=== PATIENT | male | born 1955 | race American Indian/Alaskan Native ===

== ENCOUNTER 2020-12-04 15:06 | Emergency (ER) | payer MEDICARE, OTHER ==
[2020-12-04 16:33] VITALS: BP 141/62
--- NOTE | 2020-12-04 16:36 | Event Note ---
ED Screening Note Date of service: 12/04/20 Time: 16:35 ED Screening Note: Patient complains of right flank pain x10 days States history of kidney stones and that this pain feels similar Denies hematuria or dysuria, but admits to urinary frequency This initial assessment/diagnostic orders/clinical plan/treatment(s) is/are subject to change based on patients health status, clinical progression and re- assessment by fellow clinical providers in the ED. Further treatment and workup at subsequent clinical providers discretion. Patient/guardian urged not to elope from the ED as their condition may be serious if not clinically assessed and managed. Initial orders include: Labs CT noncontrast
--- NOTE | 2020-12-04 17:18 | Cat Scan Report ---
CT ABDOMEN PELVIS WITHOUT CONTRAST INDICATION / CLINICAL INFORMATION: R flank pain, hx of kidney stones. TECHNIQUE: Axial CT images were obtained through the abdomen and pelvis without IV contrast. All CT scans at [facility] location are performed using CT dose reduction for ALARA by means of automated exposure control. COMPARISON: None available. FINDINGS: LOWER CHEST: No significant abnormality. LIVER: No significant abnormality. GALLBLADDER: No significant abnormality. BILE DUCTS: No significant abnormality. PANCREAS: No significant abnormality. SPLEEN: No significant abnormality. ADRENALS: No significant abnormality. RIGHT KIDNEY and URETER: 0.66 cm calcification right kidney lower pole LEFT KIDNEY and URETER: No significant abnormality. STOMACH and SMALL BOWEL: No significant abnormality. COLON: No significant abnormality. APPENDIX: No significant abnormality. PERITONEUM: No free fluid. No free air. No fluid collection. LYMPH NODES: No significant adenopathy. AORTA and ARTERIES: Atherosclerotic calcified plaque abdominal aorta and iliac arteries with aneurysm s of the common iliac arteries, measuring 1.6 cm on the right 1.96 cm on the left IVC and VEINS: No significant abnormality. URINARY BLADDER: No significant abnormality. REPRODUCTIVE ORGANS: Dystrophic calcifications present within a enlarged prostate ADDITIONAL FINDINGS: None. SKELETAL SYSTEM: No significant abnormality. IMPRESSION: 1. Right nephrolithiasis 2. Bilateral common iliac artery aneurysms Signer Name: Sawyer John MD Signed: 12/04/2020 5:14 PM Workstation Name: [id number]
[2020-12-04 17:23] LABS: Basophils % (Auto) 0.6 % (0.0-1.8); Eosinophils # (Auto) 0.3 K/mm3 (0.0-0.4); Eosinophils % (Auto) 3.6 % (0.0-4.3); Hematocrit 38.1 % (35.5-45.6); Hemoglobin 12.5 gm/dl (11.8-15.2); Lymphocytes # (Auto) 1.9 K/mm3 (1.2-5.4); Lymphocytes % (Auto) 27.5 % (13.4-35.0); Mean Corpuscular HGB Conc 33 % (32-34); Mean Corpuscular Volume 87 fl (84-94); Monocytes # (Auto) 0.6 K/mm3 (0.0-0.8); Platelet Count 257 K/mm3 (140-440); Red Blood Count 4.37 M/mm3 (3.65-5.03); Red Cell Distribution Width 14.6 % (13.2-15.2)
[2020-12-04 17:44] LABS: Alanine Aminotransferase 27 units/L (7-56); Albumin 4.3 g/dL (3.9-5); BUN/Creatinine Ratio 14; Blood Urea Nitrogen 14 mg/dL (9-20); Hemolysis Index 16
[2020-12-04 19:26] LABS: Bilirubin,Urine NEG (Negative); Blood,Urine SM (Negative); Color,Urine Amber (Yellow); Mucus,Urine FEW /HPF; Protein,Urine <15 mg/dL mg/dL (Negative)
[2020-12-04] MEDS ORDERED: SODIUM CHLORIDE 0.9% 1000 ML 1,000 ML IV ONE (19:34)
[2020-12-04] MEDS ORDERED: KETOROLAC 30 MG/1 ML INJ IV ONE (19:34)
[2020-12-04] MEDS ORDERED: ONDANSETRON 4 MG/2 ML INJ IV ONE (19:34)
--- NOTE | 2020-12-04 19:40 | Emergency Department Report ---
ED Abdominal Pain HPI - General Chief Complaint: Abdominal Pain Stated Complaint: BACK PAIN POSS KIDNEY STONE PUI?: No Time Seen by Provider: 12/04/20 16:35 Source: patient Mode of arrival: Ambulatory Limitations: No Limitations - History of Present Illness Initial Comments: 64 yo AA male comes to ER with r flank pain. No n/v/d. No fever or chills. Hx of K Stones. Dr Miller is his urologist. home rx losartan wellbutrin plavix prilosec trazadonnancy carroll MD Complaint: flank pain -: Gradual, days(s) Location: R flank Radiation: none Migration to: no migration Severity: mild Consistency: constant Improves With: nothing Worsens With: nothing Associated Symptoms: denies other symptoms - Related Data Previous Rx's Medication Instructions Recorded Last Taken Type Ondansetron [Zofran Odt] 4 mg PO Q8HR PRN #10 tab.rapdis 12/04/20 Unknown Rx Tamsulosin [Flomax] 0.4 mg PO QDAY #10 cap 12/04/20 Unknown Rx traMADoL [Ultram] 50 mg PO Q6HR PRN #12 tablet 12/04/20 Unknown Rx Allergies Allergy/AdvReac Type Severity Reaction Status Date / Time No Known Allergies Allergy Unverified 03/27/13 14:55 ED Review of Systems ROS: Stated complaint: BACK PAIN POSS KIDNEY STONE Other details as noted in HPI Comment: All other systems reviewed and negative ED Past Medical Hx - Past Medical History Previous Medical History?: Yes Hx Hypertension: Yes Hx CVA: No Hx Heart Attack/AMI: No Hx Congestive Heart Failure: No Hx Diabetes: Yes Hx Deep Vein Thrombosis: No Hx Pulmonary Embolism: No Hx GERD: Yes Hx Liver Disease: No Hx Renal Disease: No Hx of Cancer: No Hx Sickle Cell Disease: No Hx Arthritis: No Hx Headaches / Migraines: No Hx Seizures: No Hx Kidney Stones: Yes Hx Psychiatric Treatment: No Hx Asthma: No Hx COPD: No Hx Tuberculosis: No Hx Dementia: No Hx HIV: No - Surgical History Past Surgical History?: Yes Additional Surgical History: back- has spinal stimulator - Family History Family history: no significant - Social History Smoking Status: Never Smoker Substance Use Type: Alcohol - Medications Home Medications: Home Medications Medication Instructions Recorded Confirmed Last Taken Type Ondansetron [Zofran Odt] 4 mg PO Q8HR PRN #10 tab.rapdis 12/04/20 Unknown Rx Tamsulosin [Flomax] 0.4 mg PO QDAY #10 cap 12/04/20 Unknown Rx traMADoL [Ultram] 50 mg PO Q6HR PRN #12 tablet 12/04/20 Unknown Rx ED Physical Exam - General Limitations: No Limitations General appearance: alert, in no apparent distress - Head Head exam: Present: atraumatic, normocephalic - Eye Eye exam: Present: normal appearance - ENT ENT exam: Present: mucous membranes moist - Neck Neck exam: Present: normal inspection - Respiratory Respiratory exam: Present: normal lung sounds bilaterally. Absent: respiratory distress - Cardiovascular Cardiovascular Exam: Present: regular rate, normal rhythm. Absent: systolic murmur, diastolic murmur, rubs, gallop - GI/Abdominal GI/Abdominal exam: Present: soft, normal bowel sounds - Rectal Rectal exam: Present: deferred - Extremities Exam Extremities exam: Present: normal inspection - Back Exam Back exam: Present: normal inspection - Neurological Exam Neurological exam: Present: alert, oriented X3 - Psychiatric Psychiatric exam: Present: normal affect, normal mood - Skin Skin exam: Present: warm, dry, intact, normal color. Absent: rash ED Course Vital Signs 12/04/20 16:30 Temperature 97.9 F Pulse Rate 62 Respiratory 18 Rate Blood Pressure 141/62 O2 Sat by Pulse 95 Oximetry - Reevaluation(s) Reevaluation #1: 12/04/20 20:17 pt refused IV and IV meds ED Medical Decision Making - Lab Data Result diagrams: 12/04/20 17:01 12/04/20 17:01 - Radiology Data Radiology results: report reviewed, image reviewed see report - Medical Decision Making Lab Results 12/04/20 12/04/20 12/04/20 Range/Units 17:01 17:01 19:05 WBC 7.0 (4.5-11.0) K/mm3 RBC 4.37 (3.65-5.03) M/mm3 Hgb 12.5 (11.8-15.2) gm/dl Hct 38.1 (35.5-45.6) % MCV 87 (84-94) fl MCH 29 (28-32) pg MCHC 33 (32-34) % RDW 14.6 (13.2-15.2) % Plt Count 257 (140-440) K/mm3 Lymph % (Auto) 27.5 (13.4-35.0) % [place] % (Auto) 9.0 H (0.0-7.3) % Eos % (Auto) 3.6 (0.0-4.3) % Baso % (Auto) 0.6 (0.0-1.8) % Lymph # (Auto) 1.9 (1.2-5.4) K/mm3 [place] # (Auto) 0.6 (0.0-0.8) K/mm3 Eos # (Auto) 0.3 (0.0-0.4) K/mm3 Baso # (Auto) 0.0 (0.0-0.1) K/mm3 Seg Neutrophils % 59.3 (40.0-70.0) % Seg Neutrophils # 4.2 (1.8-7.7) K/mm3 Sodium 135 L (137-145) mmol/L Potassium 4.4 (3.6-5.0) mmol/L Chloride 99.3 (98-107) mmol/L Carbon Dioxide 26 (22-30) mmol/L Anion Gap 14 mmol/L BUN 14 (9-20) mg/dL Creatinine 1.0 (0.8-1.3) mg/dL Estimated GFR > 60 ml/min BUN/Creatinine Ratio 14 % Glucose 89 (75-100) mg/dL Calcium 9.0 (8.4-10.2) mg/dL Total Bilirubin 0.30 (0.1-1.2) mg/dL AST 42 H (5-40) units/L ALT 27 (7-56) units/L Alkaline Phosphatase 53 (35-129) units/L Total Protein 6.9 (6.3-8.2) g/dL Albumin 4.3 (3.9-5) g/dL Albumin/Globulin Ratio 1.7 % Urine Color [place] (Yellow) Urine Turbidity Slightly-cloudy (Clear) Urine pH 7.0 (5.0-7.0) Ur Specific [place] 1.017 (1.003-1.030) Urine Protein <15 mg/dl (Negative) mg/dL Urine Glucose (UA) Neg (Negative) mg/dL Urine Ketones Neg (Negative) mg/dL Urine Blood Sm (Negative) Urine Nitrite Neg (Negative) Urine Bilirubin Neg (Negative) Urine Urobilinogen 2.0 (<2.0) mg/dL Ur Leukocyte Esterase Neg (Negative) Urine WBC (Auto) 1.0 (0.0-6.0) /HPF Urine RBC (Auto) 79.0 (0.0-6.0) /HPF Urine Mucus Few /HPF Vital Signs 12/04/20 16:30 Temperature 97.9 F Pulse Rate 62 Respiratory 18 Rate Blood Pressure 141/62 O2 Sat by Pulse 95 Oximetry labs noted wbc normal ua noted CT noted pt refused IV meds medicated with PO toradol and zofran taking po dc home with dc plan of care. pt verbalizes understanding of plan of care including rx and follow up. - Differential Diagnosis ro k stone/uti/pylo Critical care attestation.: If time is entered above; I have spent that time in minutes in the direct care of this critically ill patient, excluding procedure time. ED Disposition Clinical Impression: Kidney stone Disposition: DC-01 TO HOME OR SELFCARE Is pt being admited?: No Does the pt Need Aspirin: No Condition: Stable Instructions: Kidney Stones, [id number] Additional Instructions: follow up with urology maninder for kidney stones meds as ordered today stay well hydrated with water Prescriptions: Tamsulosin [Flomax] 0.4 mg PO QDAY #10 cap traMADoL [Ultram] 50 mg PO Q6HR PRN #12 tablet PRN Reason: Pain Ondansetron [Zofran Odt] 4 mg PO Q8HR PRN #10 tab.rapdis PRN Reason: Vomiting Referrals: ANIKA MILLER MD [Staff Physician] - 3-5 Days Time of Disposition: 19:58
[2020-12-04] MEDS ORDERED: ONDANSETRON 4 MG ODT TAB PO ONE (20:15)
[2020-12-04] MEDS ORDERED: KETOROLAC 10 MG TAB PO ONE (20:15)
== END 2020-12-04 20:40 | disposition home or self-care (01) ==
LOC: ED 15:06
DX: N20.0 Calculus of kidney (principal); I10 Essential (primary) hypertension; E11.9 Type 2 diabetes mellitus without complications; K21.9 Gastro-esophageal reflux disease without esophagitis; Z79.899 Other long term (current) drug therapy
CPT/HCPCS: 36415; 74176; 80053; 81001; 85025; Q0162

== ENCOUNTER 2021-01-09 08:35 | Day surgery (SDC) | payer MEDICARE, OTHER ==
[2021-01-09] MEDS ORDERED: LACTATED RINGERS 1,000 ML ONE (09:04)
[2021-01-09] MEDS ORDERED: ONDANSETRON 4 MG/2 ML INJ ONE ×2 (09:37→14:39)
[2021-01-09] MEDS ORDERED: FAMOTIDINE 20 MG/2 ML INJ IV ONE (09:37)
--- NOTE | 2021-01-09 09:42 | Anesthesia Consultation ---
Anesthesia Consult and Med Hx Date of service: 01/09/21 - Airway Anesthetic Teeth Evaluation: Caps, Crowns ROM Head & Neck: Adequate Mental/Hyoid Distance: Adequate Mallampati Class: Class II Intubation Access Assessment: Probably Good - Pulmonary Exam CTA: Yes - Cardiac Exam Cardiac Exam: RRR - Pre-Operative Health Status ASA Pre-Surgery Classification: ASA2, ASA3 Proposed Anesthetic Plan: General - Pulmonary Hx Smoking: Yes (STOPPED 07/2020) Hx Asthma: No COPD: No Hx Sleep Apnea: Yes (DX SLEEP APNEA WITH CPAP USE) - Cardiovascular System Hx Hypertension: Yes (X 3 MONTHS) Hx Heart Attack/AMI: No - Central Nervous System Hx Seizures: No Hx Back Pain: Yes - Gastrointestinal Hx Gastroesophageal Reflux Disease: Yes (controlled with medications; preop pepcid and zofran given) - Endocrine Hx Renal Disease: Yes (kidney stones) Hx Liver Disease: No - Hematic Hx Anemia: No Hx Sickle Cell Disease: No - Other Systems Hx Substance Use: Yes (HX OPIATE ADDICTION- CLEAN SINCE 2015) Hx Cancer: No
--- NOTE | 2021-01-09 09:43 | Anesthesia Day of Surgery ---
Anesthesia Day of Surgery - Day of Surgery Patient Examined: Yes Patient H&P Reviewed: Yes Patient is NPO: Yes Beta Blockers: No Tito's Test: N/A
[2021-01-09] MEDS ORDERED: oxyCODONE /ACETAMINOPHEN 5-325MG TAB PO SCH (10:00)
[2021-01-09] MEDS ORDERED: HYDROmorphone 1 MG/1 ML INJ IV PRN ×3 (10:00→16:14)
[2021-01-09] MEDS ORDERED: LACTATED RINGERS 1,000 ML IV SCH ×2 (10:00→14:00)
[2021-01-09] MEDS ORDERED: ONDANSETRON 4 MG/2 ML INJ IV PRN ×2 (10:00→16:14)
[2021-01-09] MEDS ORDERED: MIDAZOLAM 2 MG/2 ML INJ ONE (13:57)
[2021-01-09] MEDS ORDERED: MIDAZOLAM 2 MG/2 ML INJ IV NR (14:00)
[2021-01-09] MEDS ORDERED: ALBUTEROL 8.5 GM MDI INHALATION IH ONE (14:18)
[2021-01-09] MEDS ORDERED: LIDOCAINE PF 100 MG/5 ML (CARDIAC SYRINGE) IV ONE (14:18)
[2021-01-09] MEDS ORDERED: propofoL 200 MG/20 ML VIAL IV ONE (14:19)
[2021-01-09] MEDS ORDERED: fentaNYL 100 MCG/2 ML INJ ONE (14:19)
[2021-01-09] MEDS ORDERED: ceFAZolin/Water 2 GM/20 ML 2 GM/20 ML SYRINGE IV ONE (14:31)
[2021-01-09] MEDS ORDERED: KETOROLAC 30 MG/1 ML INJ ONE (14:39)
[2021-01-09] MEDS ORDERED: dexAMETHasone 20 MG/5 ML VIAL ONE (14:39)
--- NOTE | 2021-01-09 14:51 | Post Operative Note ---
Date of procedure: 01/09/21 Pre-op diagnosis: r renal stone Post-op diagnosis: same Findings: same Procedure: r eswl Anesthesia: MCKENZIE Surgeon: HUMERA MAHER Estimated blood loss: none Pathology: none Condition: stable Disposition: PACU
--- NOTE | 2021-01-09 14:51 | Discharge Summary ---
Short Stay Discharge Plan Activity: other (no straining ) Weight Bearing Status: Full Weight Bearing Diet: low fat, low cholesterol, low salt Special Instructions: other (inc fluids ) Follow up with: DEMETRA BECKHAM MD [Primary Care Provider] - 7 Days ANIKA KAUFMAN MD [Staff Physician] - 7 Days
[2021-01-09] MEDS ORDERED: ceFAZolin/STERILE WATER 2 GM/20 ML SYRINGE IV NR (15:00)
[2021-01-09] MEDS ORDERED: HYDROmorphone 1 MG/1 ML INJ ONE (16:15)
--- NOTE | 2021-01-09 16:15 | Post Anesthesia Evaluation ---
- Post Anesthesia Evaluation Patient Participated: Yes Airway Patent: Yes Stable Respiratory Function: Yes Nausea/Vomiting: No Temp > 96.8F: Yes Pain Manageable: Yes Adequeate Hydration: Yes Anesthesia Complications: No Block Receding Appropriately: Not Applicable Patient on Ventilator: No
[2021-01-09] MEDS: HYDROmorphone 1 MG/1 ML INJ IV PRN ×2 (16:17→16:27)
[2021-01-09] MEDS ORDERED: oxyCODONE /ACETAMINOPHEN 5-325MG TAB PO PRN (16:30)
[2021-01-09 16:50] VITALS: BP 135/68
--- NOTE | 2021-01-09 17:40 | Operative Report ---
DATE OF SURGERY: 01/09/2021 PREOPERATIVE DIAGNOSES: Right renal stone. POSTOPERATIVE DIAGNOSES: Right renal stone. PROCEDURES: Right lithotripsy. SURGEON: Neville Magallanes MD. ANESTHESIA: General. FINDINGS: This gentleman with intermittent right flank pain with a prominent stone in the right, now presents for lithotripsy. DESCRIPTION OF PROCEDURE: The patient was brought to the operating room and placed on the operating table. Following induction of anesthesia, placed over the table and prepped and draped in usual sterile fashion. Lithotripsy was started at 1 kV, increased to maximum of 8 kV. A total of 2500 shocks were given. The patient tolerated the procedure well. Excellent breakage of the stone and fragmentation was achieved. He may need further procedures, he is aware of it. He did not want a stent, which he has had in the past. He was brought to recovery in stable condition. TID: [id number] RECEIPT: [id number] TIMOTHY/CAMILA/RICHARD
== END 2021-01-09 16:55 | disposition home or self-care (01) ==
LOC: OR 08:35
PROVIDERS: ATTEND Urology
DX: N20.0 Calculus of kidney (principal); I10 Essential (primary) hypertension; G47.30 Sleep apnea, unspecified; K21.9 Gastro-esophageal reflux disease without esophagitis; Z79.899 Other long term (current) drug therapy; Z79.82 Long term (current) use of aspirin; Z87.891 Personal history of nicotine dependence; Z98.890 Other specified postprocedural states
CPT/HCPCS: 50590; 82962; J0690; J1100; J1170; J1885; J2001; J2250; J2405; J2704; J3010; J7120

== ENCOUNTER 2022-01-20 15:52 | Outpatient (CLI) | payer MEDICARE, OTHER | END 2022-01-20 15:53 | disposition home or self-care (01) | LOC: LABHHL 15:52 | PROVIDERS: ATTEND Otolaryngology | DX: J32.9 Chronic sinusitis, unspecified (principal) | CPT/HCPCS: 87102; 87220 ==